=== PATIENT | female | born 1975 | race African-American/Black ===

== ENCOUNTER → 2016-12-17 | Outpatient (CLI) | payer BC ==
--- NOTE | 2016-12-17 16:14 | RAD ---
Lumbar spine radiographs History: Lumbar pain with right leg radiculopathy for several months. Comparison: None. Findings: AP and lateral views lumbar spine, 3 images. 5 lumbar type vertebral bodies are present. There does appear to be a relatively well-formed disc between the S1 and S2 segments. No acute fracture or malalignment is identified. Intervertebral disc heights appear preserved. Mild facet degeneration is seen at L5-S1. No spondylolysis or spondylolisthesis is appreciated. Cholecystectomy clips are present. Impression: Mild facet degeneration at L5-S1.
== END | disposition home or self-care (01) ==
LOC: DXRADRC 15:56
PROVIDERS: ATTEND Nurse Practitioner Family
DX: M51.37 Other intervertebral disc degeneration, lumbosacral region (principal); M54.17 Radiculopathy, lumbosacral region
CPT/HCPCS: 72100